=== PATIENT | female | born 1990 | race Two or more races ===

== ENCOUNTER 2022-02-01 12:14 | Inpatient (IN) ==
[2022-02-01] MEDS ORDERED: CARBOPROST TROMETHAMINE 250 MCG/ML AMP IM PRN (12:37)
[2022-02-01] MEDS ORDERED: METHYLERGONOVINE 0.2 MG/1 ML AMP IM PRN (12:37)
[2022-02-01] MEDS ORDERED: TRANEXAMIC ACID 1,000 MG in SODIUM CHLORIDE 0.9% 100 ML IV PRN (12:37)
[2022-02-01] MEDS ORDERED: OXYTOCIN/LR 20 UNIT/1,000 ML BAG IV ONE ×2 (12:37→19:02)
[2022-02-01] MEDS ORDERED: LACTATED RINGERS 1,000 ML IV ONE (12:37)
[2022-02-01] MEDS ORDERED: ONDANSETRON 4 MG/2 ML VIAL IV PRN (12:37)
[2022-02-01] MEDS ORDERED: miSOPROStoL 200 MCG TABLET RECTAL PRN (12:37)
[2022-02-01] MEDS ORDERED: OXYTOCIN/LR 20 UNIT/1,000 ML BAG IV SCH (13:00)
[2022-02-01] MEDS ORDERED: LACTATED RINGERS 1,000 ML IV SCH (13:00)
[2022-02-01 13:03] LABS: Basophils % 0.2 % (0.0-0.8); Eosinophils % 0.1 % (0.00-10.9); Hematocrit 34.5 VOL% (35.7-47.0); Hemoglobin 11.4 GM/DL (12.0-16.0); Immature Granulocytes % 0.4 %; Immature Granulocytes Absolute 0.04 #; Lymphocytes # 1.8 10*3/uL (1.4-4.0); Lymphocytes % 18.2 % (21.3-54.2); Mean Corpuscular Volume 87.1 FL (87-102); Mean Platelet Volume 12.2 FL (9.6-12.0); Monocytes # 0.5 10*3/uL (0.11-0.8); Monocytes % 5.2 % (1.7-12.7); Neutrophils % 75.9 % (38.7-73.9); Platelet Count 216 T/CUMM (130-400); Red Blood Count 3.96 MC/CUMM (3.8-5.5); Red Cell Distribution Width 14.7 % (9.3-17.3); White Blood Count 9.7 T/CUMM (4-12)
[2022-02-01 13:20] LABS: Albumin 2.6 G/DL (3.4-5.0); Bilirubin,Total 0.5 MG/DL (0.20-1.00); Calcium 8.4 MG/DL (8.5-10.1); Osmolality,Calculated 276.4 MOS/KG (273-304); Potassium 3.5 MMOL/L (3.5-5.1); Total Protein 6.6 G/DL (6.4-8.2)
[2022-02-01] MEDS ORDERED: MEPERIDINE 50 MG/1 ML VIAL IV PRN (15:24)
[2022-02-01 15:27] LABS: Reactive Lymphocytes Slight
[2022-02-01 15:28] LABS: Platelet Estimate Normal
[2022-02-01 17:05] LABS: Cord Venous Blood HCO3 22.1 MMOL/L; Cord Venous Blood PO2 27.6
[2022-02-01] MEDS ORDERED: HYDROCORTISONE 2.5% RECTAL CREAM 30 GM TUBE TOP PRN (19:02)
[2022-02-01] MEDS ORDERED: LANOLIN 50% CREAM 0.3 OZ TUBE TOP PRN (19:02)
[2022-02-01] MEDS ORDERED: oxyCODONE/ACETAMINOPHEN 5-325 MG TABLET PO PRN ×2 (19:02)
[2022-02-01] MEDS ORDERED: BENZOCAINE 20%/MENTHOL 0.5% SPRAY 56 GM CAN TOP PRN (19:02)
[2022-02-01] MEDS ORDERED: WITCH HAZEL PADS 100/JAR TOP PRN (19:02)
[2022-02-01] MEDS ORDERED: BISACODYL 10 MG SUPP RECTAL PRN (19:02)
[2022-02-01] MEDS ORDERED: ACETAMINOPHEN 325 MG TABLET PO PRN (19:02)
[2022-02-01] MEDS ORDERED: RHO(D) IMMUNE GLOBULIN 300 MCG SYRINGE IM ONE (19:30)
[2022-02-01] MEDS ORDERED: MEASLES/MUMPS/RUBELLA VACCINE 0.5 ML VIAL SUBCUT ONE (19:30)
[2022-02-01] MEDS: IBUPROFEN 800 MG TABLET PO PRN (19:36)
[2022-02-01] MEDS ORDERED: DIPH/TET/ACEL PERT BOOSTER VACCINE 0.5 ML VIAL IM ONE (19:45)
[2022-02-01] MEDS: DOCUSATE SODIUM 100 MG CAPSULE PO SCH (21:59)
[2022-02-02 05:29] LABS: Basophils % 0.2 % (0.0-0.8); Eosinophils % 0.2 % (0.00-10.9); Hematocrit 25.1 VOL% (35.7-47.0); Hemoglobin 8.2 GM/DL (12.0-16.0); Immature Granulocytes % 0.5 %; Immature Granulocytes Absolute 0.06 #; Lymphocytes # 2.8 10*3/uL (1.4-4.0); Lymphocytes % 23.2 % (21.3-54.2); Mean Corpuscular HGB Conc 32.7 GM/DL (32-36); Mean Platelet Volume 12.1 FL (9.6-12.0); Monocytes # 0.6 10*3/uL (0.11-0.8); Neutrophils % 70.9 % (38.7-73.9); Platelet Count 190 T/CUMM (130-400); Red Blood Count 2.82 MC/CUMM (3.8-5.5); Red Cell Distribution Width 14.6 % (9.3-17.3)
[2022-02-02] MEDS: LEVOTHYROXINE 125 MCG TABLET PO SCH (06:07)
[2022-02-02] MEDS: DOCUSATE SODIUM 100 MG CAPSULE PO SCH ×2 (09:20→20:53)
[2022-02-02] MEDS: FERROUS SULFATE 325 MG TABLET PO SCH ×2 (09:21→20:53)
[2022-02-02] MEDS: IBUPROFEN 800 MG TABLET PO PRN (15:24)
[2022-02-03] MEDS: LEVOTHYROXINE 125 MCG TABLET PO SCH (05:50)
[2022-02-03] MEDS: DOCUSATE SODIUM 100 MG CAPSULE PO SCH (08:39)
[2022-02-03] MEDS: IBUPROFEN 800 MG TABLET PO PRN (08:39)
[2022-02-03] MEDS: FERROUS SULFATE 325 MG TABLET PO SCH (08:39)
[2022-02-03 11:27] VITALS: BP 122/66
== END 2022-02-03 11:53 | disposition home or self-care (01) | DRG 807 ==
LOC: N.OBOUT 12:14 → N.LD 12:17 → N.OB 20:40
PROVIDERS: ADMIT Obstetrics & Gynecology; ATTEND Obstetrics & Gynecology